=== PATIENT | male | born 1955 | race Two or more races ===

== ENCOUNTER 2023-09-06 22:19 | Emergency (ER) | payer OTHER ==
[~2023-09-06] VITALS: Ht 175.3 cm; Wt 90.7 kg
[2023-09-06] MEDS ORDERED: LISI20TA30 PO (22:37)
[2023-09-06 23:08] LABS: BASOPHILS # (AUTO) 0.1 K/UL (0.0-0.2); BASOPHILS % (AUTO) 0.6 % (0.0-2.0); EOSINOPHILS # (AUTO) 0.5 K/uL (0.0-0.7); EOSINOPHILS % (AUTO) 6.1 % (0.0-7.0); LYMPHOCYTES # (AUTO) 2.2 K/uL (0.8-4.8); MEAN CORPUSCULAR HEMOGLOBIN 31.3 uug (23.8-33.4); MEAN CORPUSCULAR HGB CONC 34 g/dL (32.5-36.3); MEAN CORPUSCULAR VOLUME 91.9 fL (73.0-96.2); MONOCYTES # (AUTO) 0.9 K/uL (0.1-1.30); MONOCYTES % (AUTO) 10.1 % (0.0-11.0); NEUTROPHILS # (AUTO) 5.1 K/uL (1.8-8.9); NEUTROPHILS % (AUTO) 58.2 % (38.5-71.5); PLATELET COUNT (AUTO) 195 K/uL (152-348); RED BLOOD CELL COUNT(AUTO) 4.14 MIL/uL (4.06-5.63); RED CELL DISTRIBUTION WIDTH 14.3 % (12.1-16.2); WHITE BLOOD COUNT (AUTO) 8.8 K/uL (3.6-10.2)
[2023-09-06 23:13] LABS: DIFFERENTIAL COMMENT 1
[2023-09-06] MEDS: IV NORMAL SALINE 500 ML BAG IV ONE ×2 (23:15→23:38)
[2023-09-06 23:19] LABS: CALCIUM 9.9 mg/dL (8.5-10.1); CARBON DIOXIDE 26 mmol/L (21-32); CHLORIDE 105 mmol/L (98-107); CREATININE 1.5 mg/dL (0.6-1.3); GLUCOSE 116 mg/dL (74-106); POTASSIUM 4.4 mmol/L (3.5-5.1); SODIUM SERUM 140 mmol/L (136-145); UREA NITROGEN, BLOOD 39 mg/dL (7-18)
[2023-09-07 00:35] VITALS: BP 144/72; O2SAT 98
== END 2023-09-07 00:36 | disposition home or self-care (01) ==
LOC: ER 22:21
DX: R07.89 Other chest pain (principal); Z79.899 Other long term (current) drug therapy; Z60.2 Problems related to living alone; Z88.1 Allergy status to other antibiotic agents
CPT/HCPCS: 99283; 96360; 71045; 80048; 83735; 85025; 84484; 36415; 93005; J7040 ×2; A4606; A4663